=== PATIENT | male | born 1990 | race Caucasian/White ===

== ENCOUNTER 2017-08-03 04:03 | Emergency (ER) | payer OTHER ==
[2017-08-03 04:25] VITALS: TEMP 97.9
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
[2017-08-03 08:19] VITALS: BP 126/89; PULSE 89; RESP 16; O2SAT 96
== END 2017-08-03 08:19 | disposition home or self-care (01) ==
DX: S00.81XA Abrasion of other part of head, initial encounter (principal); F10.129 Alcohol abuse with intoxication, unspecified; V49.49XA Driver injured in collision with other motor vehicles in traffic accident, initial encounter; Y92.410 Unspecified street and highway as the place of occurrence of the external cause; Y99.8 Other external cause status; Y93.89 Activity, other specified